=== PATIENT | female | born 1955 | race Caucasian/White ===

== ENCOUNTER 2018-07-26 23:01 | Emergency (ER) | payer OTHER ==
[~2018-07-26] VITALS: Ht 167.6 cm; Wt 88.9 kg
[2018-07-26 23:37] LABS: BASOPHILS ABSOLUTE AUTO 0.06 K/mm3 (0.00-0.23); BASOPHILS PERCENT AUTO 1 % (0-2); EOSINOPHILS PERCENT AUTO 1 % (0-6); Hematocrit 41.1 % (33.0-51.0); Hemoglobin 13.7 g/dL (11.5-16.0); IMMATURE GRAN ABSOLUTE AUTO 0.03 K/mm3 (0.00-0.10); IMMATURE GRAN PERCENT AUTO 0 % (0-1); LYMPHOCYTES ABSOLUTE AUTO 1.93 K/mm3 (0.84-5.20); LYMPHOCYTES PERCENT AUTO 24 % (21-46); MONOCYTES ABSOLUTE AUTO 0.66 K/mm3 (0.16-1.47); MONOCYTES PERCENT AUTO 8 % (4-13); Mean Corpuscular HGB 31.6 pg (26.0-34.0); Mean Corpuscular HGB Conc 33.3 g/dL (31.5-36.5); Mean Corpuscular Volume 95 fL (80-100); Mean Platelet Volume 9.8 fL (9.1-12.4); NEUTROPHILS ABSOLUTE AUTO 5.37 K/mm3 (1.96-9.15); NEUTROPHILS PERCENT AUTO 66 % (41-73); Platelet Count 287 K/mm3 (150-400); RDW Standard Deviation 42.5 fL (35.1-46.3); Red Blood Cell Count 4.33 M/mm3 (3.80-5.20); White Blood Cell Count 8.15 K/mm3 (4.00-11.30)
[2018-07-26] MEDS ORDERED: LEVSOD88 PO (23:41)
[2018-07-26] MEDS ORDERED: ACET325 PO (23:41)
[2018-07-26 23:51] LABS: Alanine Aminotransfer (ALT/SGP 23 U/L (12-78); Albumin, Blood 3.5 g/dL (3.4-5.0); Albumin/Globulin Ratio 0.8 (0.8-1.8); Alk Phos 67 U/L (50-136); Anion Gap 7 mmol/L (6-16); Aspartate Aminotrans (AST/SGOT 21 U/L (12-37); Bilirubin, Total 0.2 mg/dL (0.1-1.0); Blood Urea Nitrogen 32 mg/dL (8-24); Bun/Creatinine Ratio 35.6 (12.0-20.0); CO2, Blood 25 mmol/L (21-32); Calcium, Blood 8.6 mg/dL (8.5-10.1); Chloride, Blood 107 mmol/L (98-108); Globulin, Blood 4.2 g/dL (2.2-4.0); Glomerular Filtration Rate >60 (60-); Glucose, Blood 104 mg/dL (70-99); Sodium, Blood 139 mmol/L (136-145); Total Protein, Blood 7.7 g/dL (6.4-8.2)
[2018-07-27 00:26] LABS: Troponin I <0.015 ng/mL (0.000-0.040)
== END 2018-07-27 02:19 | disposition home or self-care (01) ==
LOC: ER 23:01
PROVIDERS: Emergency Medicine
DX: R55 Syncope and collapse (principal); E03.9 Hypothyroidism, unspecified; Z79.899 Other long term (current) drug therapy
CPT/HCPCS: 80053; 84443; 84484; 85025; 93005; 93010; 96361; 96374; 99284-25; J2405; J7030